=== PATIENT | female | born 1990 | race Caucasian/White ===

== ENCOUNTER 2025-04-06 13:38 | Emergency (ER) | payer OTHER ==
[~2025-04-06] VITALS: Ht 170.2 cm; Wt 104.3 kg
[2025-04-06 13:50] VITALS: PULSE 75; RESP 16; TEMP 98.9; O2SAT 99
[2025-04-06] MEDS: KETOROLAC TROMETHAMINE 30 MG/ML VIAL IM STA (14:20)
[2025-04-06] MEDS ORDERED: KETOROLAC TROME10 MG PO (14:39)
== END 2025-04-06 15:08 | disposition home or self-care (01) ==
LOC: ER 13:42
DX: M79.671 Pain in right foot (principal); M72.2 Plantar fascial fibromatosis; F41.9 Anxiety disorder, unspecified; F17.210 Nicotine dependence, cigarettes, uncomplicated
CPT/HCPCS: 73610; 73630; 99283; J1885